=== PATIENT | male | born 1975 | race Caucasian/White ===

== ENCOUNTER 2017-02-12 18:00 | Inpatient (IN) | payer OTHER ==
[~2017-02-12] VITALS: Ht 167.6 cm; Wt 79.4 kg
--- NOTE | ~2017-02-12 | PN ---
Unit #: [id number] #: [id number] Patient: HIMA WILLIAM [id number] [facility] [address] [place] [address] [id number] MR#: [id number] NAME: HIMA WILLIAM ROOM: 84 Age: 41 Sex: M Admission Date: 02/12/2017 : 1975 Attending Physician: Boyd Zepeda M.D. Admitting Physician: Boyd Zepeda M.D. Primary Care Physician: Primary Care Physician Judie CHRISTIANSON PROGRESS NOTES DATE 02/14/2017 DISCUSSION The patient is abed today and is gently but firmly confronted by this physician regarding his failure to attend an on-unit therapeutic activity. The patient is continuing to report some feelings of hopelessness but has more future orientation during today's interview. I have suggested to the patient that he continue his quest for post discharge residential chemical dependence treatment as the patient has expressed interest in "[facility]." Dictated by... Boyd Zepeda M.D. CB/chai TD: 02/14/2017 15:15 JOB #: [id number] [facility]MY PROGRESS NOTES Page 1 of 1 X Boyd Zepeda MD X PROGRESS NOTE
--- NOTE | ~2017-02-12 | PA ---
Unit #: [id number] #: [id number] Patient: HIMA WILLIAM [id number] [facility] [address] [place] [address] [id number] MR#: [id number] NAME: HIMA WILLIAM ROOM: P181 Age: 41 Sex: M Admission Date: 02/12/2017 : 1975 Date of Assessment: 02/13/2017 Attending Physician: Boyd Zepeda M.D. Admitting Physician: Boyd Zepeda M.D. Primary Care Physician: Primary Care Physician No PSYCHIATRIC ASSESSMENT IDENTIFYING INFORMATION The patient is a 41-year-old male admitted with increasing abuse of alcohol and methamphetamine. CHIEF COMPLAINT Alcohol and meth. INFORMANT The patient, patient's reliability is good. HISTORY OF PRESENT ILLNESS The patient is a 41-year-old white male admitted to the [address] [place] [address] with increasing abuse of alcohol and methamphetamine. The patient also admits to abuse of illicitly obtained Lortab and cannabis. The patient reports that he has been fearful because he has been fighting with friends and losing his temper because of his methamphetamine use. The patient also complains of hopelessness. He currently became homeless after a recent divorce. He has attempted suicide in the past but was denying suicidal ideation at the time of admission. The patient denies any history of intravenous drug use. he has been in treatment at this facility in April of last year. He is currently prescribed Zoloft and BuSpar but complains that these medications "don't do nothing for my anxiety." PAST PSYCHIATRIC HISTORY As noted previously the patient was last hospitalized at this facility. He has also been hospitalized at chemical dependence treatment facilities in the [facility] where he has resided briefly. MEDICATIONS 1. BuSpar 2. Sertraline 3. Lisinopril ALLERGIES None. PAST MEDICAL HISTORY The patient suffers from hypertension. FAMILY HISTORY Noncontributory. SOCIAL HISTORY The patient is presently homeless and reports substance use as noted Unit #: [id number] #: [id number] Patient: HIMA WILLIAM previously. He is presently unemployed. MENTAL STATUS EXAMINATION At this time reveals the patient to be a well-developed, well-nourished white male, appearing his stated age. He is in no apparent physical distress at the time of examination. He is awake, alert, and oriented in all spheres. His mood is dysphoric. His affect constricted. Speech is generally relevant and coherent. There are no gross deficits in memory or cognition noted. Intelligence is judged to be in the average range based on fund of knowledge. The patient is cooperative throughout the interview. He is currently denying suicidal or homicidal ideation and denies any psychotic symptoms. His judgment and insight appear to be intact. ASSETS AND LIABILITIES ASSETS: Motivation for change. LIABILITIES: Lack of resources. DIAGNOSTIC IMPRESSION 1. Alcohol use disorder. 2. Methamphetamine use disorder. 3. Mood disorder unspecified. TREATMENT PLAN The patient remains hospitalized for safety and stabilization. We have placed the patient on a routine detoxification protocol for alcohol. He will participate in appropriate swift and milieu activities and continue previously prescribed medications. ESTIMATED LENGTH OF STAY IN THE HOSPITAL Five to seven days. Dictated by... Boyd Zepeda M.D. TONIA/viri TD: 02/13/2017 22:07 JOB #: [id number] PSYCHIATRIC ASSESSMENT Page 1 of 1 X Boyd Zepeda MD X PSYCHIATRIC ASSESSMENT
--- NOTE | ~2017-02-12 | HP ---
Unit #: [id number] #: [id number] Patient: FRANCISCO WILLIAM [id number] [place] [address] [id number] MR#: [id number] NAME: FRANCISCO WILLIAM ROOM: P184 Age: 41 Sex: M Admission Date: 02/12/2017 : 1975 Attending Physician: Boyd Zepeda M.D. Admitting Physician: Boyd Zepeda M.D. Primary Care Physician: Primary Care Physician No HISTORY AND PHYSICAL HISTORY OF PRESENT ILLNESS Francisco is a 41 year old admitted to [facility] because of his continued polysubstance abuse which includes alcohol and illicit drugs. He has had other admissions to this facility for the same. PAST MEDICAL HISTORY 1. History of alcohol abuse. 2. History of illicit substance abuse to include methamphetamines, opioids and marijuana. 3. Asthma. 4. High blood pressure. PAST SURGICAL HISTORY Nothing reported. ALLERGIES No known drug allergies. SOCIAL HISTORY Smokes one pack per day. Drinks alcohol frequently and admits to a long history of illicit substance abuse. FAMILY HISTORY Medically noncontributory. REVIEW OF SYSTEMS CONSTITUTIONAL: No fever or chills. HEENT: Denies any sore throat, ear pain or runny nose. CARDIOVASCULAR: Denies chest pain, irregular heart rhythm or palpitations. CHEST: Denies shortness of breath or cough. No hemoptysis. GASTROINTESTINAL: Denies nausea, vomiting, diarrhea or chronic constipation. ENDOCRINE: Denies history of increased thirst or urination. No recent significant weight loss or gain. GENITOURINARY: Denies dysuria, frequency, or hematuria. SKIN: Denies any rashes. HEMATOLOGIC: Denies history of increased bleeding or bruising. MUSCULOSKELETAL: Denies any hot, swollen joints. No generalized muscle pain. NEUROLOGIC: Denies problems with vision or speech. No frequent, severe headaches. No numbness, tingling or weakness in any extremities. Denies loss of bladder or bowel control. Unit #: [id number] #: [id number] Patient: FRANCISCO WILLIAM CURRENT MEDICATIONS 1. Detox protocol. 2. Zoloft 50 mg q day. 3. BuSpar 15 mg t.i.d. 4. Zestril 20 mg q day 5. HCTZ 12.5 mg q day PHYSICAL EXAMINATION GENERAL: Alert, well-nourished, in no apparent distress. VITAL SIGNS: Blood pressure 110/70, heart rate 66, respirations 16, temperature 98.6. WEIGHT: 175. HEIGHT: 5 foot 6 inches. SKIN: Warm and dry without rash or lesion. HEENT: Normocephalic. TMs not viewed. Oral and nasal passages clear. Conjunctivae clear. Pupils equal, round and reactive to light and accommodation. Extraocular movements intact. NECK: Supple without lymphadenopathy or thyromegaly. HEART: Regular rate and rhythm without murmur. LUNGS: Clear. ABDOMEN: Soft, nontender. : Not done. EXTREMITIES: No evidence of cyanosis, clubbing or edema. Moves all extremities without focal deficit. NEUROLOGICAL: Grossly within normal limits. Cranial Nerves: II: Visual webb are intact. III, IV AND : Extraocular movements are intact. Pupils are equal, round and reactive to light. V: Facial sensation is grossly normal. VII: Facial movements and expression are normal. VIII: Auditory acuity grossly intact. IX, X: Uvula is midline. Phonation is normal. XI: Patient shrugs shoulders and turns head normally. XII: Tongue protrudes in the midline. Sensory and Motor Function: Sensory and motor sensation is grossly normal. Motor: moves all extremities well. Coordination: Gait is normal. Deep Tendon Reflexes: Intact. IMPRESSION Psychiatric admission. RECOMMENDATIONS PSYCHIATRIC: Per psychiatrist. MEDICAL: I see no contraindications to participating in facility's activities. MEDICAL PROGNOSIS Good. MEDICAL CONDITION Stable. Dictated by... Roman CurtisAMedhat. for Unit #: [id number] #: [id number] Patient: FRANCISCO WILLIAM Agueda Carpenter/viri TD: 02/13/2017 23:01 JOB #: [id number] HISTORY AND PHYSICAL Page 1 of 1 X Lizzette Carter HISTORY AND PHYSICAL
--- NOTE | ~2017-02-12 | DS ---
Unit #: [id number] #: [id number] Patient: HIMA WILLIAM [id number] [place] [address] [id number] MR#: [id number] NAME: HIMA WILLIAM ROOM: P181 Age: 41 Sex: M Admission Date: 02/12/2017 : 1975 Discharge Date: 02/15/2017 Attending Physician: Boyd Zepeda M.D. Primary Care Physician: Primary Care Physician No DISCHARGE SUMMARY REASON FOR ADMISSION The patient is a 41-year-old, , white male, admitted to the [address] [place] [address] unit with a history of polysubstance dependence and depressed mood. HOSPITAL COURSE The patient was admitted to the [address] [place] [address] unit and placed on suicide precautions. He was continued on previously prescribed medications. Zoloft was increased to 150 mg daily. The patient exhibited little in the way of signs or symptoms of withdrawal and requested discharge. When seen by this physician on 02/15/2017, stating that he would go to "[facility]" upon his discharge from the hospital. Discharge was ordered. FINAL DIAGNOSES Dysthymic disorder; alcohol use disorder; methamphetamine use disorder; cannabis use disorder; asthma; hypertension. DISPOSITION ON DISCHARGE The patient is discharged on the following medications: Zoloft 150 mg daily for depression, BuSpar 15 mg t.i.d. for anxiety, Zestril 20 mg daily for hypertension, and Oretic 12.5 mg daily for hypertension. DISCHARGE INSTRUCTIONS No dietary or physical restrictions were placed upon the patient at the time of discharge. FOLLOWUP Followup will take place through the auspices of community mental health resources. The patient's prognosis is considered fair. He will follow at "[facility]." PROGNOSIS The patient's prognosis is considered fair. Dictated by... Boyd Zepeda M.D. CB/tawanda TD: 02/16/2017 11:51 JOB #: [id number] Unit #: [id number] #: [id number] Patient: HIMA WILLIAM DISCHARGE SUMMARY Page 1 of 1 X Boyd Zepeda MD X DISCHARGE SUMMARY
[2017-02-13 09:35] LABS: BASOPHIL% 0.4 % (0-2.5); EOSINOPHIL# 0.3 X10e3 (0-0.7); EOSINOPHIL% 3.4 % (0.0-7.0); HEMATOCRIT 49.5 % (38.0-50.0); HEMOGLOBIN 16.7 gm/dL (13.0-16.0); LYMPHOCYTE# 2.5 X10e3 (1.0-3.5); LYMPHOCYTE% 26.5 % (17.0-45.0); MEAN CELL VOLUME 90.5 FL (83-96); MEAN CORPUSCULAR HEMOGLOBIN 30.5 PG (28-34); MEAN CORPUSCULAR HGB CONC 33.7 g/dL (30-36); MEAN PLATELET VOLUME 7.2 FL (6.5-11.5); MONOCYTE% 11.2 % (3.0-12.0); NEUTROPHIL# 5.5 X10e3 (1.5-7.1); NEUTROPHIL% 58.5 % (40-75); PLATELET COUNT 291 X10e3 (140-420); RED BLOOD COUNT 5.47 X10e (3.90-5.60); RED CELL DISTRIBUTION WIDTH 13.7 % (11.0-15.5); WHITE BLOOD COUNT 9.3 X10e3 (4.0-10.5)
[2017-02-13 09:39] LABS: DIFF IND NO
[2017-02-13 09:49] LABS: ALBUMIN SERUM 4.2 g/dL (3.5-5.0); BILIRUBIN,TOTAL 0.8 mg/dL (0.2-2.0); CALCIUM SERUM 9.5 mg/dL (8.4-10.2); GLOM FILT RATE Estimated 93.7 mL/min (>60); POTASSIUM 4.5 mmol/L (3.5-5.1); PROTEIN TOTAL SERUM 7.1 g/dL (6.0-8.3)
[2017-02-13 09:54] LABS: URINE APPEARANCE CLEAR; URINE BILIRUBIN NEG (NEG); URINE BLOOD NEG (NEG); URINE COLOR YELLOW; URINE GLUCOSE NEG (NEG); URINE KETONE NEG (NEG); URINE LEUKOCYTE ESTERASE NEG (NEG); URINE NITRATE NEG (NEG); URINE PH 6.5 (5-8); URINE PROTEIN NEG (NEG); URINE SPECIFIC GRAVITY 1.005 (1.003-1.035); URINE UROBILINOGEN 0.2 MG/DL (NEG)
[2017-02-13 10:17] LABS: AMPHETAMINE NEG (NEG); BARBITURATES NEG (NEG); BENZODIAZEPINES NEG (NEG); COCAINE NEG (NEG); MARIJUANA POS (NEG); OPIATES NEG (NEG); TRICYCLIC ANTIDEPRESSANTS NEG (NEG); U METHADONE NEG (NEG)
== END 2017-02-15 14:23 | disposition home or self-care (01) | DRG 881 ==
LOC: P1E 20:23
PROVIDERS: Specialist
PROC: HZ2ZZZZ Detoxification Services for Substance Abuse Treatment (ICD-10-PCS; principal; 2017-02-12)
DX: F34.1 Dysthymic disorder (principal); I10 Essential (primary) hypertension; F10.10 Alcohol abuse, uncomplicated; F15.10 Other stimulant abuse, uncomplicated; F12.10 Cannabis abuse, uncomplicated; J45.909 Unspecified asthma, uncomplicated; F17.210 Nicotine dependence, cigarettes, uncomplicated
CPT/HCPCS: 80053; 80307; 81003; 85025; 86592